=== PATIENT | female | born 2005 | race African-American/Black ===

== ENCOUNTER 2023-11-15 11:26 | Emergency (ER) | payer MEDICAID | END 2023-11-15 13:50 | disposition home or self-care (01) | LOC: CSHERS 11:26 | DX: O03.9 Complete or unspecified spontaneous abortion without complication (principal) | CPT/HCPCS: 76856 ==

== ENCOUNTER 2024-02-21 11:54 | Emergency (ER) | payer OTHER ==
[2024-02-21] MEDS ORDERED: Metoclopramide HCl 10 MG (2 mL) VIAL ONE (12:52)
[2024-02-21 13:52] LABS: Bilirubin Neg (Negative); Blood, Urine 10 (Negative); Clarity Clear (Clear); Glucose, Urine (Dipstick) Normal (Negative); Ketone, Urine 50 mg/dL (Negative); Leukocyte Negative (Negative); Nitrite Negative (Negative); Protein, Urine (Dipstick) 15 mg/dl (Neg-Trace); Urobilinogen Normal mg/dL (Less than 2)
[2024-02-21 13:55] LABS: #Basophils 0.01 10x3/uL (0.0-0.2); #Eosinophils 0.01 10x3/uL (0.0-0.5); #Monocytes 0.23 10x3/uL (0.0-1.1); #Neutrophils 6.36 10x3/uL (1.5-8.4); %Basophils 0.1 % (0.0-2.0); %Eosinophils 0.1 % (0.0-6.0); %Lymphocytes 7.9 % (18.0-47.0); %Monocytes 3.2 % (0.0-10.0); %Neutrophils 88.6 % (40.0-75.0); ALT (SGPT) 15 U/L (8-55); AST (SGOT) 21 U/L (5-34); Albumin 4.3 g/dL (3.5-5.0); Alkaline Phosphatase 55 U/L (40-110); Anion Gap 14 mmol/L (10-20); BUN (Urea Nitrogen) 11 mg/dL (7.0-18.7); Calc. Creatinine Clearance 0 mL/min (70-130); Calcium 10.1 mg/dL (7.8-10.44); Carbon Dioxide 19 mmol/L (22-29); Chloride 108 mmol/L (98-107); Estimated GFR 127; Globulin 3.8 g/dL (2.4-3.5); Glucose 95 mg/dL (70-105); Hematocrit 40.2 % (34.9-44.5); Hemoglobin 14.3 g/dL (12.0-15.5); Lipase 32 U/L (8-78); Mean Corpuscular HGB CONC 35.6 g/dL (32.0-36.0); Mean Corpuscular Hemoglobin 29.9 pg (27.0-33.0); Mean Corpuscular Volume 84.1 fL (81.6-98.3); Mean Platelet Volume 10.8 fL (7.4-10.4); Platelet Count 259 10x3/uL (150-450); Potassium 3.7 mmol/L (3.5-5.1); Protein, Total 8.1 g/dL (6.0-8.3); RBC Distribution Width 11.6 % (11.5-14.5); Red Blood Cell (RBC) Count 4.78 10x6/uL (3.90-5.03); Sodium 137 mmol/L (136-145); White Blood Cell (WBC) Count 7.2 10x3/uL (3.5-10.5)
[2024-02-21 14:20] LABS: CAUTI Indications for Culture Pelvic or flank pain; RBC/HPF 0-3 HPF (0-3); WBC/HPF 0-3 HPF (0-3)
[2024-02-21 14:21] LABS: Bacteria/HPF 1+ HPF (None Seen); Urine Culture Reflex No No; Yeast-Budding 1+ HPF (None Seen)
== END 2024-02-21 14:14 | disposition home or self-care (01) ==
LOC: CSHERS 11:54
DX: O99.281 Endocrine, nutritional and metabolic diseases complicating pregnancy, first trimester (principal); E86.0 Dehydration; O21.9 Vomiting of pregnancy, unspecified; R19.7 Diarrhea, unspecified; Z3A.01 Less than 8 weeks gestation of pregnancy
CPT/HCPCS: 80053; 81001; 83690; 84702; 85025; 96374; J2765

== ENCOUNTER 2024-06-15 07:56 | Day surgery (SDC) | payer OTHER ==
[2024-06-15 08:41] VITALS: BMI 24.5
[2024-06-15] MEDS ORDERED: hydrALAZINE 20 MG/ML VIAL SLOW IVP PRN (08:49)
== END 2024-06-15 10:03 | disposition home or self-care (01) ==
LOC: CSHLD/OP 07:56
PROVIDERS: ATTEND Obstetrics & Gynecology
DX: O36.8120 Decreased fetal movements, second trimester, not applicable or unspecified (principal); O99.891 Other specified diseases and conditions complicating pregnancy; R10.9 Unspecified abdominal pain; Z3A.22 22 weeks gestation of pregnancy; Z79.899 Other long term (current) drug therapy
CPT/HCPCS: 76815; 99285

== ENCOUNTER 2025-03-10 18:35 | Emergency (ER) | payer OTHER | END 2025-03-10 19:29 | disposition home or self-care (01) | LOC: CSHERS 18:35 | DX: S80.871A Other superficial bite, right lower leg, initial encounter (principal); W54.0XXA Bitten by dog, initial encounter | CPT/HCPCS: 99283 ==